=== PATIENT | male | born 1995 | race African-American/Black ===

== ENCOUNTER 2017-04-17 11:41 | Observation (INO) | payer BC ==
[~2017-04-17 11:41] MED LIST: DIPRIVAN VIAL ONE; LTA KIT LIDOCAINE 4% ONE; NEOSTIGMINE INJ ONE; NORCURON INJ 10 MG VIAL ONE; QUELICIN (OR ANECTINE) ONE; ROBINUL ONE; SUPRANE IN ONE; VERSED ONE; XYLOCAINE 2 % (PLAIN) ONE; ZOFRAN INJ 4 MG VIAL ONE
[2017-04-17 11:46] VITALS: BMI 26.4
[2017-04-17 12:19] LABS: BILIRUBIN,URINE NEGATIVE (NEGATIVE); BLOOD/HEMOGLOBIN,URINE NEGATIVE (NEGATIVE); GLUCOSE, URINE 1+ (NEGATIVE); KETONES,URINE 4+ (NEGATIVE); LEUKOCYTE ESTERASE ,URINE 1+ (NEGATIVE); NITRITES,URINE NEGATIVE (NEGATIVE); PROTEIN,URINE 1+ (NEGATIVE); UROBILINOGEN,URINE 1+ (NORMAL)
[2017-04-17 12:25] LABS: APPEARANCE,URINE HAZY (CLEAR); BACTERIA,URINE TRACE /HPF (NEGATIVE); COLOR,URINE YELLOW (YELLOW); MUCUS,URINE MODERATE /HPF (NEGATIVE); RBC,URINE 0-2 /HPF (NEGATIVE); SQUAMOUS EPITHELIAL CELL,UR RARE /HPF (NEGATIVE)
--- NOTE | 2017-04-17 12:26 | DR.GENAD ---
HPI - PCP Primary Care Physician: NFD - HPI Comment HPI Comment: SEEN AT [facility] BUT LEFT BEFORE EVALUATION COMPLETED. CT INDICATING ACUTE APPENDICITIS. NO FEVER. NAUSEATED BUT NO VOMITING CURRENTLY. HAVE HAD ABD PAIN, N/V FOR PAST 2 DAYS. - Complaint/Symptoms Chief Complaint Doctors Comments: ABDOMINAL PAIN. Chief Complaint:: PATIENT STATED HE HAS HAD LOWER ABD PAIN FOR 2 DAYS WITH VOMITING. WAS IN [place] ER AND LEFT TO COME HERE. HAD CT WITH CONTRAST IN [place] TODAY - Nurses notes reviewed Nurses Notes Review: Yes - Source History Provided: Patient - Mode of Arrival Mode of Arrival: Ambulatory - Timing Onset of Chief Complaint: 04/15/17 Came on: Suddenly - Duration Duration: Constant Duration: Days - Severity Severity: Moderate PMH - PMH Past Medical History: No Past Surgical History: No - Family History History of Family Medical Conditions: Yes Family Medical History: Hypertension - Social History Does patient currently use any type of tobacco product: No Have you used tobacco products in the last 12 months: No Type of Tobacco Use: None Does any household member use tobacco: No Alcohol Use: None Do you use any recreational Drugs:: No Lives With: Family Lives Where: Home - infectious screening In the last 2 months have you had wt loss of >10#?: NO Have you had fever, night sweats or hemotysis?: No Have you traveled outside the country in the last 6 months?: No Isolation: Standard ROS - Review of Systems Constitutional: Weakness, Fatigue Eyes: No Symptoms Reported ENTM: No Symptoms Reported Respiratoy: No Symptoms Reported Cardiovascular: No Symptoms Reported Gastrointestinal/Abdominal: Abdominal Pain, Nausea, Vomiting Genitourinary: No Symptoms Reported Neurological: No Symptoms Reported Musculoskeletal: No Symptoms Reported Integumentary: No Symptoms Reported Hematologic/Lymphatic: No Symptoms Reported Endocrine: No Symptoms Reported All Other Systems: Reviewed and Negative PE - Vital Signs Vitals: Temperature 98.3 F Pulse Rate 110 Respiratory Rate 16 Blood Pressure 134/88 O2 Sat by Pulse Oximetry 99 - General Limitations: No Limitations General Appearance: Alert - Head Head Exam: Normal Inspection - Eyes Eye exam: Normal Appearance - ENT ENT Exam: Normal External Ear Exam External Ear Exam: Normal External Inspection TM/Canal Exam: Bilateral Normal Nose Exam: Normal Nose Exam Mouth Exam: Normal Inspection Throat Exam: Normal Inspection - Neck Neck Exam: Trachea Midline - Chest Chest Inspection: Symmetric Chest Wall Rise - Respiratory Respiratory Exam: Normal Lung Sounds Bilat Respiratory Exam: Bilateral Clear to Auscultation - Cardiovascular Cardiovascular Exam: Regular Rate, Normal Rhythm, Normal Heart Sounds - Abdominal Exam Abdominal Exam: Normal Bowel Sounds, Soft, Tenderness Abdominal Tenderness: RLQ, LLQ, Suprapubic, Diffuse, Moderate - Extremities Extremities Exam: Normal Inspection - Back Back Exam: Normal Inspection - Neurologic Neurological Exam: Alert, Oriented X3, CN II-XII Intact, Normal Gait, Reflexes Normal. negative: Motor Sensory Deficit - Psychiatric Psychiatric Exam: Anxious - Skin Skin Exam: Normal Color MDM - Additional Information Additional Information Obtained From: Family - Differential Diagnosis Differential Diagnosis: ACUTE APPENDICITIS, ABDOMINAL PAIN. Course - Treatment Treatment: SEE ORDERS - Consultation Consultation Comments: DISCUSS PATIENT WITH DR. MANNING. HE WILL ADMIT AND DO SURGERY TODAY. DR. VALENCIA WILL ADMIT PATIENT PCP. - Education/Counseling Education/Counseling: Patient, Family Educated On: Treatment, Diagnosis ROR - Labs Reviewed Laboratory Results Reviewed?: Yes (LABS FROM [place] NOTED) Laboratory: Specimen Type Clean catch urine 04/17/17 12:06 Urine Color Yellow (YELLOW) 04/17/17 12:06 Urine Appearance Hazy (CLEAR) 04/17/17 12:06 Urine pH 7.0 (5.0 - 8.0) 04/17/17 12:06 Ur Specific [place] 1.010 (1.000-1.030) 04/17/17 12:06 Urine Protein 1+ (NEGATIVE) 04/17/17 12:06 Urine Glucose (UA) 1+ (NEGATIVE) 04/17/17 12:06 Urine Ketones 4+ (NEGATIVE) 04/17/17 12:06 Urine Occult Blood Negative (NEGATIVE) 04/17/17 12:06 Urine Nitrite Negative (NEGATIVE) 04/17/17 12:06 Urine Bilirubin Negative (NEGATIVE) 04/17/17 12:06 Urine Urobilinogen 1+ (NORMAL) 04/17/17 12:06 Ur Leukocyte Esterase 1+ (NEGATIVE) 04/17/17 12:06 Urine RBC 0-2 /HPF (NEGATIVE) 04/17/17 12:06 Urine WBC 3-5 /HPF (NEGATIVE) 04/17/17 12:06 Ur Squamous Epith Cells Rare /HPF (NEGATIVE) 04/17/17 12:06 Urine Bacteria Trace /HPF (NEGATIVE) 04/17/17 12:06 Urine Mucus Moderate /HPF (NEGATIVE) 04/17/17 12:06 Ur Culture Indicated? No/not indicated 04/17/17 12:06 - XRAY XRAY Findings: CT REPORT FROM [facility]. - Diagnosis Discharge Problem: Acute appendicitis Qualifiers: Acute appendicitis type: with localized peritonitis Qualified Code(s): K35.3 - Acute appendicitis with localized peritonitis Abdominal pain Qualifiers: Abdominal location: lower abdomen, unspecified Qualified Code(s): R10.30 - Lower abdominal pain, unspecified - Discharge Plan Disposition: ADMITTED INPATIENT Condition: Stable - Follow ups/Referrals - Instructions
[2017-04-17] MEDS ORDERED: MORPHINE SULFATE INJ 4 MG ONE (12:39)
[2017-04-17] MEDS ORDERED: ZOFRAN INJ 4 MG VIAL ONE (12:39)
[2017-04-17] MEDS ORDERED: ZOFRAN INJ 4 MG VIAL IVP ONE (12:40)
[2017-04-17] MEDS ORDERED: MORPHINE SULFATE INJ 4 MG IVP ONE (12:40)
[2017-04-17] MEDS ORDERED: DILAUDID INJ ONE (13:30)
[2017-04-17] MEDS ORDERED: DILAUDID INJ IVP ONE (13:35)
[2017-04-17] MEDS ORDERED: ZOFRAN INJ 4 MG VIAL IVP PRN ×2 (13:58→19:22)
[2017-04-17] MEDS: NS 1000 ML 1,000 ML IV SCH ×2 (15:36→21:15)
[2017-04-17] MEDS: ANCEF VIAL 1 GM ONE ×2 (17:51→18:10)
[2017-04-17] MEDS: MARCAINE 0.25% WITH EPI IJ ONE ×2 (17:52→18:14)
[2017-04-17] MEDS: XYLOCAINE 1 % (PLAIN) ONE ×2 (17:52→18:14)
[2017-04-17] MEDS: FENTANYL INJ 250 mcg ONE ×2 (17:52→18:14)
[2017-04-17] MEDS: LR 1000 ML IV 1,000 ML IV ONE ×2 (17:53→18:10)
[2017-04-17] MEDS: NS 50 ML IV + SPIKE MINIBAG* 100 ML IV ONE ×2 (17:53→18:10)
[2017-04-17] MEDS ORDERED: NS IRRIGATION 1000 ML 3,000 ML IR ONE (18:48)
[2017-04-17] MEDS ORDERED: PERCOCET TAB 5/325 MG PO PRN (19:16)
[2017-04-17] MEDS ORDERED: PHENERGAN INJ 25 MG IVP PRN (19:22)
[2017-04-17] MEDS ORDERED: REGLAN INJ 10 MG VIAL IVP PRN (19:22)
[2017-04-17] MEDS ORDERED: DILAUDID INJ IVP PRN (19:22)
[2017-04-17] MEDS ORDERED: BENADRYL INJ 50 MG VIAL IVP PRN (19:22)
[2017-04-17] MEDS: FLAGYL IV PREMIX 500 MG BAG 500 MG/100 ML BAG IV SCH ×2 (21:15→22:16)
[2017-04-17] MEDS: CIPRO IV 400 MG PREMIX* 400 MG/200 ML IV.SOLN. IV SCH ×2 (21:15→22:16)
[2017-04-17] MEDS ORDERED: DILAUDID PO ONE (21:21)
[2017-04-17] MEDS: DILAUDID PO PRN (21:22)
[2017-04-17] MEDS: MORPHINE SULFATE INJ 2 MG IVP PRN (23:05)
[2017-04-18] MEDS ORDERED: DILAUDID PO ONE ×3 (04:01→15:57)
[2017-04-18] MEDS: DILAUDID PO PRN ×3 (04:03→16:03)
[2017-04-18] MEDS: FLAGYL IV PREMIX 500 MG BAG 500 MG/100 ML BAG IV SCH ×4 (04:03→20:17)
[2017-04-18] MEDS: MORPHINE SULFATE INJ 2 MG IVP PRN ×3 (04:59→16:02)
[2017-04-18] MEDS: NS 1000 ML 1,000 ML IV SCH ×4 (06:04→22:35)
[2017-04-18] MEDS: CIPRO IV 400 MG PREMIX* 400 MG/200 ML IV.SOLN. IV SCH ×2 (09:06→20:17)
[2017-04-18 09:32] LABS: BASOPHILS % (AUTO) 0.2 % (0.2-1.0); EOSINOPHILS % (AUTO) 0.1 % (0.9-2.9); HEMATOCRIT 41.7 % (42.0-54.0); HEMOGLOBIN 14.6 g/dL (13.5-18.0); LYMPHOCYTES # (AUTO) 1.8 X10^3/uL (1.3-2.9); LYMPHOCYTES % (AUTO) 14.1 % (21.0-51.0); MEAN CORPUSCULAR HEMOGLOBIN 31.8 pg (27.0-34.0); MEAN CORPUSCULAR VOLUME 90.9 fL (80.0-100.0); MEAN PLATELET VOLUME 7.8 fL (7.4-11.0); MONOCYTES # (AUTO) 0.7 x10^3/uL (0.3-0.8); MONOCYTES % (AUTO) 5.2 % (0.0-13.0); NEUTROPHILS # (AUTO) 10.5 x10^3/uL (2.2-4.8); NEUTROPHILS % (AUTO) 80.4 % (42.0-75.0); PLATELET COUNT 226 X10^3/uL (150.0-450.0); RED BLOOD COUNT 4.59 X10^6/uL (4.7-6.0); RED CELL DISTRIBUTION WIDTH 12.4 % (11.6-16.5); WHITE BLOOD COUNT 13.1 X10^3/uL (3.6-10.0)
[2017-04-18 09:42] LABS: ALANINE AMINOTRANSFERASE 44 Units/L (12-78); ALBUMIN 3.7 g/dL (3.4-5.0); ALKALINE PHOSPHATASE 47 Units/L (46-116); ASPARTATE AMINO TRANSFERASE 37 Units/L (15-37); BLOOD UREA NITROGEN 8 mg/dL (7-18); CALCIUM 8.4 mg/dL (8.5-10.1); CARBON DIOXIDE 29.6 mmol/L (21-32); CHLORIDE 103 mmol/L (98-107); COR NA(FOR HYPERGLY) 139 mmol/L (136-145); GLUCOSE 114 mg/dL (65-99); SODIUM 139 mmol/L (136-145); TOTAL PROTEIN 7.3 g/dL (6.4-8.2); eGFR BLACK RACES > 60 (>60); eGFR NON BLACK RACES > 60 (>60)
[2017-04-18] MEDS ORDERED: MYLICON TAB 80 MG CHEW PO ONE (11:16)
[2017-04-18] MEDS ORDERED: ZANTAC PO ONE (11:16)
[2017-04-18] MEDS ORDERED: MYLICON TAB 80 MG CHEW PO PRN (18:10)
[2017-04-18] MEDS ORDERED: PERCOCET TAB 5/325 MG PO PRN (21:02)
[2017-04-18] MEDS ORDERED: DILAUDID INJ IVP PRN (21:04)
[2017-04-18] MEDS: TORADOL 30 MG VIAL IVP SCH (22:06)
[2017-04-19] MEDS: FLAGYL IV PREMIX 500 MG BAG 500 MG/100 ML BAG IV SCH ×2 (02:33→09:04)
[2017-04-19 05:13] LABS: ALANINE AMINOTRANSFERASE 39 Units/L (12-78); ALBUMIN 3.6 g/dL (3.4-5.0); ALKALINE PHOSPHATASE 44 Units/L (46-116); ASPARTATE AMINO TRANSFERASE 32 Units/L (15-37); BLOOD UREA NITROGEN 8 mg/dL (7-18); CALCIUM 8.2 mg/dL (8.5-10.1); CARBON DIOXIDE 29.5 mmol/L (21-32); CHLORIDE 105 mmol/L (98-107); CREATININE 1.04 mg/dL (0.70-1.30); GLUCOSE 88 mg/dL (65-99); SODIUM 140 mmol/L (136-145); eGFR BLACK RACES > 60 (>60); eGFR NON BLACK RACES > 60 (>60)
[2017-04-19 05:36] LABS: BASOPHILS % (AUTO) 0.4 % (0.2-1.0); EOSINOPHILS % (AUTO) 0.6 % (0.9-2.9); HEMATOCRIT 40.2 % (42.0-54.0); HEMOGLOBIN 14.2 g/dL (13.5-18.0); LYMPHOCYTES % (AUTO) 35.8 % (21.0-51.0); MEAN CORPUSCULAR HEMOGLOBIN 32.1 pg (27.0-34.0); MEAN CORPUSCULAR HGB CONC 35.3 g/dL (33.0-35.0); MEAN CORPUSCULAR VOLUME 91.1 fL (80.0-100.0); MONOCYTES # (AUTO) 0.6 x10^3/uL (0.3-0.8); MONOCYTES % (AUTO) 7.2 % (0.0-13.0); NEUTROPHILS # (AUTO) 4.8 x10^3/uL (2.2-4.8); PLATELET COUNT 212 X10^3/uL (150.0-450.0); RED BLOOD COUNT 4.42 X10^6/uL (4.7-6.0); RED CELL DISTRIBUTION WIDTH 12.5 % (11.6-16.5); WHITE BLOOD COUNT 8.5 X10^3/uL (3.6-10.0)
[2017-04-19] MEDS: TORADOL 30 MG VIAL IVP SCH (05:39)
[2017-04-19] MEDS: NS 1000 ML 1,000 ML IV SCH (05:41)
[2017-04-19 07:37] LABS: BILIRUBIN,URINE NEGATIVE (NEGATIVE); BLOOD/HEMOGLOBIN,URINE NEGATIVE (NEGATIVE); GLUCOSE, URINE NEGATIVE (NEGATIVE); KETONES,URINE NEGATIVE (NEGATIVE); LEUKOCYTE ESTERASE ,URINE 2+ (NEGATIVE); NITRITES,URINE NEGATIVE (NEGATIVE); PROTEIN,URINE 2+ (NEGATIVE); UROBILINOGEN,URINE NORMAL (NORMAL)
[2017-04-19 07:50] LABS: AMORPHOUS SEDIMENT,UR 2+ /HPF (NEGATIVE); APPEARANCE,URINE CLOUDY (CLEAR); BACTERIA,URINE TRACE /HPF (NEGATIVE); COLOR,URINE AMBER (YELLOW); RBC,URINE 0-1 /HPF (NEGATIVE); SQUAMOUS EPITHELIAL CELL,UR RARE /HPF (NEGATIVE)
[2017-04-19 07:51] LABS: MUCUS,URINE MODERATE /HPF (NEGATIVE)
--- NOTE | 2017-04-19 07:55 | DR.H&P ---
H&P - History & Physical for Day of: H&P Date: 04/17/17 - Chief Complaint Chief Complaint: ABDOMINAL PAIN, ACUTE APPENDICITIS - Allergies Allergies/Adverse Reactions: Allergies Allergy/AdvReac Type Severity Reaction Status Date / Time azithromycin [From Zithromax] Allergy Verified 04/17/17 15:37 - History of Present Illness History of Present Illness: IS A 21 YEAR OLD PATIENT OF WHO PRESENTED TO THE EMERGENCY ROOM WITH COMPLAINTS OF LLQ ABDOMINAL PAIN, NAUSEA, VOMITING, AND FEVER FOR 2 DAYS PRIOR TO ARRIVING TO ER. PATEINT STATED THAT HE WAS SEEN IN [place] ER TODAY AND HAD LABS AND CT WITH CONTRAST OF ABD/PELVIS, BUT LEFT BEFORE HE RECEIVED RESULTS. WE OBTAINED RESULTS FROM [facility]. CBC WNL EXCEPT WBC 15.8. CMP WNL EXCEPT GLUCOSE 127, BUN 6, TOTAL BILIRUBIN 1.20. CT REPORTS ACUTE APPENDICITIS. VITALS ON ARRIVAL TO ER WERE 98.3 -110-16-99%-134/88. WE ADMITTED PATIENT FOR FURTHER TREATMENT AND EVALUATION AND FOR SURGICAL CONSULT. WE STARTED HIM ON DILAUDID 4MG IV Q4H PRN PAIN, ZOFRAN 4MG IVP Q6H PRN PAIN, AND NS @125ML/HR. WE CONSULTED AND ARE AWAITING HIS ARRIVAL. WE WILL PLAN TO RECHECK LABS AND FOLLOW UP WITH PATIENT IN AM. - Past Medical History Past Medical History: denies: Alzheimers, Anemia, Angina, Anxiety, Arthritis, Asthma, Cirrhosis, CHF, COPD, Coronary Artery Disease, CVA, Dementia, Depression , Diabetes, Dialysis, Migraines, Dyslipidemia, GERD, Gout, Headaches, Hypertension, Hyperthyroidism, Hypothyroidism, Kidney Stones, Liver Disease, [place] , PUD, Renal Disease, Schizophrenia, Seizures, Sleep Apnea, SVT, Ventricular Tachycardia - Past Surgical History Surgical History: denies: Unknown, No History, AAA Repair, Abdominal Surgery, Angioplasty/Stents, Appendectomy, Bowel Resection, , CABG/Valve Surgery , Carotid Endarterectomy, Cholecystectomy, Ectopic , JEWELRY ESTIMATOR Surgery, Hysterectomy, Joint Replacement, Mastectomy, Neurosurgery, Organ Transplant, Ortho Surgery, Spleenectomy, Thyroidectomy, Tonsillectomy, TURP, Weight Loss Surgery, Lithotripsy, Other - Family History Family Medical History: Hypertension. denies: Diabetes Mellitus, Cancer, [place], Coronary Artery Disease, Heart Failure, Sudden Cardiac - Social History Does patient currently use any type of tobacco product: No Have you used tobacco products in the last 12 months: No Type of Tobacco Use: None Does any household member use tobacco: No Alcohol Use: None Drug Use: None - Review of Systems Constitutional: Fever. denies: No Symptoms Reported, See HPI, Chills, Sweats, Weakness, Malaise, Other Eyes: No Symptoms Reported. denies: See HPI, Pain, Vision Change, Conjunctivae Inflammation, Eyelid Inflammation, Redness, Other ENT: No Symptoms Reported. denies: See HPI, Ear Pain, Ear Discharge, Nose Pain , Nose Discharge, Nose Congestion, Mouth Pain, Mouth Swelling, Throat Pain, Throat Swelling, Other Respiratory: No Symptoms Reported. denies: See HPI, Cough, Dry, Shortness of Breath, Hemoptysis, SOB with Excertion, Pleuritic Pain, Sputum, Wheezing, Other Cardiovascular: No Symptoms Reported. denies: Chest Pain, See HPI, Palpitations , Orthopnea, Paroxysmal Noc. Dyspnea, Edema, Light Headedness, Other Gastrointestinal: See HPI, Nausea, Vomiting, Abdominal Pain. denies: No Symptoms Reported, Diarrhea, Constipation, Melena, Hematochezia, Other Genitourinary: No Symptoms Reported. denies: See HPI, Dysuria, Frequency, Incontinence, Hematuria, Retention, Other Musculoskeletal: No Symptoms Reported. denies: See HPI, Shoulder Pain, Arm Pain , Back Pain, Hand Pain, Leg Pain, Foot Pain, Neck Pain, Other Skin: No Symptoms Reported. denies: See HPI, Rash, Lesions, Jaundice, Bruising , Wound, Ecchymosis, Other Neurological: No Symptoms Reported. denies: See HPI, Weakness, Numbness, Incoordination, Change in Speech, Confusion, Seizures, Other - Physical Exam Vital Signs: Temperature 98.6 F Pulse Rate [Right Brachial] 63 Pulse Rate [Left] 86 Pulse Rate 69 Respiratory Rate 20 Blood Pressure [Right Arm] 126/75 Blood Pressure [Left Arm] 128/76 Blood Pressure 137/75 O2 Sat by Pulse Oximetry 94 Oriented: Normal. negative: Time, Person, Place, Not Oriented, Unable to test, Other Eyes: Normal. negative: Blurred Vision, Diplopia, Discharge, Pain, Redness, Photophobia, Other Ear: Normal. negative: Right, Left, Swelling, Ecchymosis, Hemotypanum, Abrasion , Laceration Nose: Normal. negative: Injected, Discharge, Blood, Other Throat: Normal. negative: Tonsillar Hypertrophy, Red, Exudate, Dry, Other Respiratory: Clear Throughout. negative: Diminished Throughout, Rhonchi Throughout, Rales Throughout, Wheezes Throughout, RUL Clear, RML Clear, RLL Clear, SILVIA Clear, LML Clear, LLL Clear, RUL Diminished, RML Diminished, RLL Diminished, SILVIA Diminished, LML Diminished, LLL Diminished, RUL Absent, RML Absent, RLL Absent, SILVIA Absent, LML Absent, LLL Absent, RUL Rhonchi, RML Rhonchi , RLL Rhonchi, SLIVIA Rhonchi, LML Rhonchi, LLL Rhonchi, RUL Insp. Wheeze, RML Insp. Wheeze, RLL Insp. Wheeze, SILVIA Insp.Wheeze, LML Insp.Wheeze, LLL Insp.Wheeze, RUL Exp. Wheeze, RML Exp. Wheeze, RLL Exp. Wheeze, SILIVA Exp. Wheeze , LML Exp. Wheeze, LLL Exp. Wheeze, RUL Rales, RML Rales, RLL Rales, SILVIA Rales, LML Rales, LLL Rales, RUL Rub, RML Rub, RLL Rub, SILVIA Rub, LML Rub, LLL Rub, RUL Squeak, RML Squeak, RLL Squeak, SILVIA Squeak, LML Squeak, LLL Squeak Cardiovascular: Normal. negative: Tachycardia, Bradycardia, Irregular, S3, S4, Systolic, Diastolic, Murmur, Edema, Other : Normal. negative: Dysuria, Hematuria, Frequency, Discharge, Testicular Pain , Bleeding, , Other Auscultation: Bowel Sounds: Normal. negative: Bruit, Absent, Increased, Decreased, High Pitched, Other Palpation: Normal. negative: Spleen Enlarged, Liver Enlarged, Mass Pulsatile, Other Tenderness: RLQ, Rebound. negative: Normal, Diffuse, RUQ, LUQ, LLQ, Epigastric , Periumbilical, Suprapubic, Mild, Moderate, Severe, Guarding, Rigidity, Other Skin: Normal. negative: Decreased Turgur, Rash, Papular, Macular, Maculopapular , Vesicular, Pustular, Petechial, Red, Tender, Hot, Diaphoresis, Wound, Bruising , Ecchymosis, Other Musculoskeletal: Normal. negative: Right, Left, Shoulder, Clavicle, Arm, Elbow , Forearm, Wrist, Hand, Hip, Thigh, Knee, Leg, Ankle, Foot, Back:Thoracic, Back: Lumbar, Back:Midline, Back:Paraspinous, Pelvis, Swelling, Tender, Deformity, Pulse Deficit, Motor Deficit, Sensory Deficit, Instability, Crepitance Psychiatric: Normal. negative: Anxiety, Depression, Agitation, Other Mood Description: Calm. negative: Angry, Apathetic, Depressed, Fearful, Flat, Happy, Hostile, Sad, Suspicious, Withdrawn, Anxious, Appropriate, Labile Affect: Normal. negative: Angry, Anxious, Depressed, Flat, Hysterical, Quiet, Violent Speech Pattern: Clear. negative: Appropriate, Unclear, Inappropriate, Delayed, Slurred, Excessive, Aphasic, Artificially Ventilated - Assessment/Plan (1) Acute appendicitis Qualifiers: Acute appendicitis type: with localized peritonitis Qualified Code(s): K35.3 - Acute appendicitis with localized peritonitis Status: Acute Plan: SURGICAL CONSULT, CONTINUE TO MONITOR (2) Abdominal pain Qualifiers: Abdominal location: lower abdomen, unspecified Qualified Code(s): R10.30 - Lower abdominal pain, unspecified Status: Acute Plan: SURGICAL CONSULT, DILAUDID 4MG IV Q4H PRN PAIN, CONTINUE TO MONITOR
--- NOTE | 2017-04-19 08:18 | PCM.PROG ---
Progress Note - Progress Note for Day of Date: 04/18/17 - Subjective Subjective: WAS ALERT AND ORIENTED, IN BED ON MORNING ROUNDS. PATIENT WAS TAKEN TO THE OR BY LAST NIGHT FOR LAPRASCOPIC APPENDECTOMY WITHOUT COMPLICATIONS. HE COMPLAINED OF ABDOMINAL PAIN AND PAIN IN SHOULDERS FROM GAS. DRESSING NOTED TO LEFT SIDE ABDOMEN DRY AND INTACT. VITALS THIS AM WERE 98.3-76-20-95%-131/70. CBC WNL EXCEPT WBC 13.1, RBC 4.59, HCT 41.7. CMP WNL EXCEPT GLUCOSE 114, CALCIUM 8.4. WE WILL CONTINUE WITH CURRENT PLAN OF CARE AND PLAN TO DISCHARGE PATIENT WHEN CLEARS HIM FOR RELEASE. - Past Medical Family Social History Past Med/Fam/Surg Hx: No changes since H&P Allergies: Allergies azithromycin [From Zithromax] Allergy (Verified 04/17/17 15:37) - Review of Systems ROS: No change since H&P - Vital Signs and I&O's Vital Signs: Temperature 98.6 F Pulse Rate [Right Brachial] 63 Pulse Rate [Left] 86 Pulse Rate 69 Respiratory Rate 20 Blood Pressure [Right Arm] 126/75 Blood Pressure [Left Arm] 128/76 Blood Pressure 137/75 O2 Sat by Pulse Oximetry 94 Intake and Output: Intake & Output 04/16/17 04/17/17 04/18/17 04/19/17 11:59 11:59 11:59 11:59 Intake Total 2300 3897 Output Total 1600 Balance 700 3897 - Physical Exam Oriented: Normal. negative: Time, Person, Place, Not Oriented, Unable to test, Other Eyes: Normal. negative: Blurred Vision, Diplopia, Discharge, Pain, Redness, Photophobia, Other Ear: Normal. negative: Right, Left, Swelling, Ecchymosis, Hemotypanum, Abrasion , Laceration Nose: Normal. negative: Injected, Discharge, Blood, Other Throat: Normal. negative: Tonsillar Hypertrophy, Red, Exudate, Dry, Other Respiratory: Normal Cardiovascular: Normal. negative: Tachycardia, Bradycardia, Irregular, S3, S4, Systolic, Diastolic, Murmur, Edema, Other : Normal. negative: Dysuria, Hematuria, Frequency, Discharge, Testicular Pain , Bleeding, , Other Auscultation: Bowel Sounds: Normal. negative: Bruit, Absent, Increased, Decreased, High Pitched, Other Palpation: Normal Tenderness: RLQ, Moderate. negative: Normal, Diffuse, RUQ, LUQ, LLQ, Epigastric , Periumbilical, Suprapubic, Mild, Severe, Rebound, Guarding, Rigidity, Other Skin: Normal. negative: Decreased Turgur, Rash, Papular, Macular, Maculopapular , Vesicular, Pustular, Petechial, Red, Tender, Hot, Diaphoresis, Wound, Bruising , Ecchymosis, Other Musculoskeletal: Normal. negative: Right, Left, Shoulder, Clavicle, Arm, Elbow , Forearm, Wrist, Hand, Hip, Thigh, Knee, Leg, Ankle, Foot, Back:Thoracic, Back: Lumbar, Back:Midline, Back:Paraspinous, Pelvis, Swelling, Tender, Deformity, Pulse Deficit, Motor Deficit, Sensory Deficit, Instability, Crepitance Psychiatric: Normal. negative: Anxiety, Depression, Agitation, Other Mood Description: Calm. negative: Angry, Apathetic, Depressed, Fearful, Flat, Happy, Hostile, Sad, Suspicious, Withdrawn, Anxious, Appropriate, Labile Affect: Normal. negative: Angry, Anxious, Depressed, Flat, Hysterical, Quiet, Violent Speech Pattern: Clear. negative: Appropriate, Unclear, Inappropriate, Delayed, Slurred, Excessive, Aphasic, Artificially Ventilated - Laboratory and Diagnostics Result Diagrams: 04/19/17 03:23 04/19/17 03:23 Labs: Laboratory WBC 8.5 X10^3/uL (3.6-10.0) 04/19/17 03:23 RBC 4.42 X10^6/uL (4.7-6.0) L 04/19/17 03:23 Hgb 14.2 g/dL (13.5-18.0) 04/19/17 03:23 Hct 40.2 % (42.0-54.0) L 04/19/17 03:23 MCV 91.1 fL (80.0-100.0) 04/19/17 03:23 MCH 32.1 pg (27.0-34.0) 04/19/17 03:23 MCHC 35.3 g/dL (33.0-35.0) H 04/19/17 03:23 RDW 12.5 % (11.6-16.5) 04/19/17 03:23 Plt Count 212 X10^3/uL (150.0-450.0) 04/19/17 03:23 MPV 8.0 fL (7.4-11.0) 04/19/17 03:23 Neut % 56.0 % (42.0-75.0) 04/19/17 03:23 Lymph % 35.8 % (21.0-51.0) 04/19/17 03:23 Nash % 7.2 % (0.0-13.0) 04/19/17 03:23 Eos % 0.6 % (0.9-2.9) L 04/19/17 03:23 Baso % 0.4 % (0.2-1.0) 04/19/17 03:23 Neut # 4.8 x10^3/uL (2.2-4.8) 04/19/17 03:23 Lymph # 3.0 X10^3/uL (1.3-2.9) H 04/19/17 03:23 Nash # 0.6 x10^3/uL (0.3-0.8) 04/19/17 03:23 Eos # 0.0 x10^3/uL (0.0-0.2) 04/19/17 03:23 Baso # 0.0 X10^3/uL (0.0-0.1) 04/19/17 03:23 Absolute Nucleated RBC 0.1 /100WBC 04/19/17 03:23 Sodium 140 mmol/L (136-145) 04/19/17 03:23 Corrected Sodium TNP 04/19/17 03:23 Potassium 3.5 mmol/L (3.5-5.1) 04/19/17 03:23 Chloride 105 mmol/L (98-107) 04/19/17 03:23 Carbon Dioxide 29.5 mmol/L (21-32) 04/19/17 03:23 BUN 8 mg/dL (7-18) 04/19/17 03:23 Creatinine 1.04 mg/dL (0.70-1.30) 04/19/17 03:23 Est GFR (MDRD) Af Amer > 60 (>60) 04/19/17 03:23 Est GFR (MDRD) Non-Af > 60 (>60) 04/19/17 03:23 Glucose 88 mg/dL (65-99) 04/19/17 03:23 Calcium 8.2 mg/dL (8.5-10.1) L 04/19/17 03:23 Corrected Calcium TNP 04/19/17 03:23 Total Bilirubin 0.80 mg/dL (0.2-1.0) 04/19/17 03:23 AST 32 Units/L (15-37) 04/19/17 03:23 ALT 39 Units/L (12-78) 04/19/17 03:23 Alkaline Phosphatase 44 Units/L (46-116) L 04/19/17 03:23 Total Protein 7.0 g/dL (6.4-8.2) 04/19/17 03:23 Albumin 3.6 g/dL (3.4-5.0) 04/19/17 03:23 Globulin 3.4 g/dL (2.5-4.5) 04/19/17 03:23 Albumin/Globulin Ratio 1.1 Ratio (1.1-2.1) 04/19/17 03:23 Specimen Type Clean catch urine 04/19/17 07:26 Urine Color [place] (YELLOW) 04/19/17 07:26 Urine Appearance Cloudy (CLEAR) 04/19/17 07:26 Urine pH 7.0 (5.0 - 8.0) 04/19/17 07:26 Ur Specific [place] 1.015 (1.000-1.030) 04/19/17 07:26 Urine Protein 2+ (NEGATIVE) 04/19/17 07:26 Urine Glucose (UA) Negative (NEGATIVE) 04/19/17 07:26 Urine Ketones Negative (NEGATIVE) 04/19/17 07:26 Urine Occult Blood Negative (NEGATIVE) 04/19/17 07:26 Urine Nitrite Negative (NEGATIVE) 04/19/17 07:26 Urine Bilirubin Negative (NEGATIVE) 04/19/17 07:26 Urine Urobilinogen Normal (NORMAL) 04/19/17 07:26 Ur Leukocyte Esterase 2+ (NEGATIVE) 04/19/17 07:26 Urine RBC 0-1 /HPF (NEGATIVE) 04/19/17 07:26 Urine WBC 4-6 /HPF (NEGATIVE) 04/19/17 07:26 Ur Squamous Epith Cells Rare /HPF (NEGATIVE) 04/19/17 07:26 Amorphous Sediment 2+ /HPF (NEGATIVE) 04/19/17 07:26 Urine Bacteria Trace /HPF (NEGATIVE) 04/19/17 07:26 Urine Mucus Moderate /HPF (NEGATIVE) 04/19/17 07:26 Ur Culture Indicated? Yes/culture set up 04/19/17 07:26 Tissue Pathology To follow 04/17/17 18:55 - Plan (1) Acute appendicitis Status: Acute Qualifiers: Acute appendicitis type: with localized peritonitis Qualified Code(s): K35.3 - Acute appendicitis with localized peritonitis Plan: LAPRASCOPIC APPENDECTOMY, CONTINUE TO MONITOR (2) Abdominal pain Status: Acute Qualifiers: Abdominal location: lower abdomen, unspecified Qualified Code(s): R10.30 - Lower abdominal pain, unspecified Plan: LAPRASCOPIC APPENDECTOMY, DILAUDID 0.5MG IV Q4H PRN PAIN, PERCOCET 5/325 2 TABS Q6H PRN PAIN, TORADOL 30MG IVP Q8H PRN PAIN, CONTINUE TO MONITOR
[2017-04-19 08:32] VITALS: BP 127/77
[2017-04-19] MEDS: CIPRO IV 400 MG PREMIX* 400 MG/200 ML IV.SOLN. IV SCH (10:29)
[2017-04-19] MEDS ORDERED: COLACE CAP 100 MG PO SCH (21:00)
--- NOTE | 2017-04-19 21:16 | DR.CARTERD ---
- Admission Date Date of Admission: 04/17/17 - Admission Diagnoses Admission Diagnosis: (1) Acute appendicitis (2) Abdominal pain - Discharge Date Discharge Date: 04/19/17 - Discharge Diagnoses Discharge Diagnosis: (1) Acute appendicitis (2) Abdominal pain - Hospital Course Hospital Course: IS A 21 YEAR OLD PATIENT OF WHO PRESENTED TO THE EMERGENCY ROOM WITH COMPLAINTS OF LLQ ABDOMINAL PAIN, NAUSEA, VOMITING, AND FEVER FOR 2 DAYS PRIOR TO ARRIVING TO ER. PATEINT STATED THAT HE WAS SEEN IN [place] ER TODAY AND HAD LABS AND CT WITH CONTRAST OF ABD/PELVIS, BUT LEFT BEFORE HE RECEIVED RESULTS. WE OBTAINED RESULTS FROM [facility]. CBC WNL EXCEPT WBC 15.8. CMP WNL EXCEPT GLUCOSE 127, BUN 6, TOTAL BILIRUBIN 1.20. CT REPORTS ACUTE APPENDICITIS. VITALS ON ARRIVAL TO ER WERE 98.3-110-16-99%-134/ 88. WE ADMITTED PATIENT FOR FURTHER TREATMENT AND EVALUATION AND FOR SURGICAL CONSULT. WE STARTED HIM ON DILAUDID 4MG IV Q4H PRN PAIN, ZOFRAN 4MG IVP Q6H PRN PAIN, AND NS @125ML/HR. WE CONSULTED AND ARE AWAITING HIS ARRIVAL. PATIENT WAS TAKEN TO THE OR BY FOR LAPRASCOPIC APPENDECTOMY WITHOUT COMPLICATIONS. HE COMPLAINED OF ABDOMINAL PAIN AND PAIN IN SHOULDERS FROM GAS. HE WAS GIVEN MYLICON 160MG PO X 1, AND ZANTAC 300MG PO X 1. PATIENT WAS NOTED WITH RELIEF OF PAIN. ON DAY OF DISCHARGE, PATIENT IS ALERT AND ORIENTED IN BED ON MORNING ROUNDS. FAMILY AT BEDSIDE. HE IS WITHOUT COMPLAINTS. VITALS THIS AM WERE 98.6-73-18-94%- 127/77. CBC WNL EXCEPT RBC 4.42, HCT 40.2. CMP WNL EXCEPT CALCIUM 8.2, ALKALINE PHOSPHATE 44. WE PLANNED FOR DISCHARGE. INSTRUCTIONS FOR MEDICATIONS AND FOLLOW UP WERE DISCUSSED WITH PATIENT AND FAMILY. BOTH VERBALIZED UNDERSTANDING. PATIENT DISCHARGED HOME IN STABLE CONDITION WITH NEW PRESCRIPTIONS FOR CIPRO 500MG PO BID X 7 DAYS AND PERCOCET 5/325 1-2 TAB PO Q4H PRN PAIN. HE HAS INSTRUCTIONS TO FOLLOW UP WITH NEXT WEEK. - Discharge Medications Discharge Medications: Oxycodone HCl/Acetaminophen [Percocet 5-325 mg Tablet] 1 - 2 each PO Q4H PRN # 30 tablet 04/18/17 [Rx] Ciprofloxacin HCl [CIPRO 500 MG TAB *] 500 mg PO Q12H #14 tab 04/19/17 [Rx]
== END 2017-04-19 11:00 | disposition home or self-care (01) ==
LOC: ER 11:55 → MED/SURG 13:52
PROVIDERS: ADMIT Internal Medicine; ATTEND Internal Medicine
PROC: 0DTJ4ZZ Resection of Appendix, Percutaneous Endoscopic Approach (ICD-10-PCS; principal; 2017-04-17 17:00)
DX: K35.3 Acute appendicitis with localized peritonitis (principal); R10.84 Generalized abdominal pain; R11.2 Nausea with vomiting, unspecified; D72.828 Other elevated white blood cell count
CPT/HCPCS: 36415; 80053; 81001; 85025; 87086; 96365; 96374; 96375; 99284; A4216; A4222; S0020; S0030; G0378; J0330; J0690; J0744; J1170; J1885; J2001; J2250; J2270; J2405; J2710; J3010; J3490; J7120